=== PATIENT | female | born 1990 | race Hispanic/Latino ===

== ENCOUNTER 2017-12-04 08:12 | Inpatient (IN) | payer BC ==
[2017-12-04] MEDS ORDERED: Lidocaine 2% Inj (20ml) INFIL STA (08:49)
[2017-12-04] MEDS ORDERED: Bacitracin 500 Units/gm Oint Foilpak UD TOP STA (08:49)
--- NOTE | 2017-12-04 08:51 | C.PDOC ---
History Of Present Illness 27-year-old female, presents to the emergency department with complaints of laceration to left knee, sustained when she tripped and fell out of her car last night. Patient denies any numbness/weakness. Chief Complaint (Nursing): Lower Extremity Problem/Injury History Per: Patient History/Exam Limitations: no limitations Current Symptoms Are (Timing): Still Present Severity: Moderate Past Medical History Reviewed: Historical Data, Nursing Documentation, Vital Signs Vital Signs: Last Vital Signs Temp 98 F 12/04/17 15:30 Pulse 78 12/04/17 15:30 Resp 18 12/04/17 15:30 BP 106/73 12/04/17 15:30 Pulse Ox 97 12/04/17 18:52 Family History: States: No Known Family Hx - Social History Hx Alcohol Use: Yes Hx Substance Use: No - Immunization History Hx Tetanus Toxoid Vaccination: Yes Hx Influenza Vaccination: No Hx Pneumococcal Vaccination: No Review Of Systems Respiratory: Negative for: Shortness of Breath Gastrointestinal: Negative for: Vomiting Musculoskeletal: Negative for: Neck Pain, Back Pain Neurological: Negative for: Weakness, Numbness Physical Exam - Physical Exam Appears: Non-toxic, No Acute Distress Skin: Normal Color, Warm, Dry, No Rash Head: Atraumatic, Normacephalic Eye(s): bilateral: Normal Inspection Nose: Normal Oral Mucosa: Moist Lips: Normal Appearing Neck: Normal ROM Chest: Symmetrical Cardiovascular: Rhythm Regular, No Murmur Respiratory: Normal Breath Sounds, No Accessory Muscle Use Extremity: No Deformity, Other (Left knee: 7cm wide laceration with surrounding erythema. ) Neurological/Psych: Oriented x3, Normal Speech ED Course And Treatment - Laboratory Results Result Diagrams: 12/04/17 14:40 12/04/17 14:40 O2 Sat by Pulse Oximetry: 97 (RA) Pulse Ox Interpretation: Normal - Other Rad XR knee X-Ray: Viewed By Me, Read By Radiologist Interpretation: Accession No. : [id number]. Patient Name / ID : NARAYAN WHITLEY / [id number]. Exam Date : 12/04/2017 08:56:20 ( Approved ). Study Comment : Sex / Age : F / 27Y. Creator : Riky King. Dictator : Ynes Tomas. Supervisor [employer] : Clicking Machine Operator : Ynes Rashid. Approver2 : Report Date : 12/04/2017 10:25:09. My Comment : . PROCEDURE: Left Knee Radiographs. HISTORY: Pain. COMPARISON: None. FINDINGS: BONES : No fracture. JOINTS: Normal. No osteoarthritis. JOINT EFFUSION: None. OTHER FINDINGS: None anterior to the proximal tibial shaft are faint ossifications- phleboliths are compatible with this. This no history of foreign body. Superior to this also in the anterior soft tissues at the tibial articular surface are more hyperdense all metallic like superficial punctate densities artifact versus foreign body here are considerations. These findings are reproduced on two views. And clinical correlation is essential. IMPRESSION : No fracture noted. No lytic lesion. Indeterminate soft tissue densities - variable as referenced above. In part phleboliths are 1 consideration. The more hyperdense finding appears more metallic like clinical correlation here is needed in terms of ruling interval ruling out any potential foreign body. No history of recent trauma and no priors available for correlation. Comments: Study marked for PA review. Progress Note: Pts XR reveals gravel in wound, will irrigate the wound and discuss case w. ortho administration physician. Ortho AUGUSTUS Monzonly did Methylene Blue Test, which was negative for joint space involvement. Pts wound edges are dark and appear to be at high risk for infection. As per Dr Nixon Stein, pt will be admitted medically for further treatment. Dr Angela Galindo, accepts pt to hospitalist service Disposition - Disposition Disposition: HOSPITALIZED Disposition Time: 14:40 Condition: STABLE - Clinical Impression Clinical Impression: Knee laceration - Scribe Statement The provider has reviewed the documentation as recorded by the Scribe (Ana M Pereyra) All medical record entries made by the Scribe were at my direction and personally dictated by me. I have reviewed the chart and agree that the record accurately reflects my personal performance of the history, physical exam, medical decision making, and the department course for this patient. I have also personally directed, reviewed, and agree with the discharge instructions and disposition. Decision To Admit - Pt Status Changed To: Hospital Disposition Of: Inpatient - Admit Certification Admit to Inpatient:: After my assessment, the patient will require hospitalization for at least two midnights. This is because of the severity of symptoms shown, intensity of services needed, and/or the medical risk in this patient being treated as an outpatient. - InPatient: Physician Admission Certification: I certify that this patient requires 2 or more midnights of care for the following reason:: Patient will go to OR tomorrow - . Bed Request Type: Regular Admitting Physician: Juan Galindo Patient Diagnosis: Knee laceration
[2017-12-04] MEDS ORDERED: Bacitracin 500 Units/gm Oint Foilpak UD ONE (09:00)
[2017-12-04] MEDS ORDERED: Lidocaine 2% MPF (5 ml) Inj ONE ×3 (09:01→09:10)
[2017-12-04] MEDS ORDERED: ceFAZolin 1 gm in NS 1 GM/100 ML BAG IVPB ONE (09:01)
[2017-12-04] MEDS ORDERED: Methylene Blue 10 mg/mL(10ml) IV ONE (11:58)
--- NOTE | 2017-12-04 12:36 | RAD ---
PROCEDURE: Left Knee Radiographs. HISTORY: Pain. COMPARISON: None. FINDINGS: BONES: No fracture. JOINTS: Normal. No osteoarthritis. JOINT EFFUSION: None. OTHER FINDINGS: None anterior to the proximal tibial shaft are faint ossifications- phleboliths are compatible with this. This no history of foreign body. Superior to this also in the anterior soft tissues at the tibial articular surface are more hyperdense all metallic like superficial punctate densities artifact versus foreign body here are considerations. These findings are reproduced on two views. And clinical correlation is essential. IMPRESSION: No fracture noted. No lytic lesion. Indeterminate soft tissue densities - variable as referenced above. In part phleboliths are 1 consideration. The more hyperdense finding appears more metallic like clinical correlation here is needed in terms of ruling interval ruling out any potential foreign body. No history of recent trauma and no priors available for correlation Comments: Study marked for PA review.
[2017-12-04] MEDS ORDERED: Sodium Chloride 0.9% 1,000 ML IV STA (13:41)
[2017-12-04 14:45] LABS: BASO # 0.1 K/uL (0.0-0.2); BASO % 0.8 % (0.0-2.0); EOS % 0.1 % (0.0-4.0); HEMOGLOBIN 13.4 g/dL (11.0-16.0); LYMPH # 1.9 K/uL (1.0-4.3); LYMPH % 20.3 % (20.0-40.0); MEAN CELL VOLUME 89.9 fL (81.0-99.0); MEAN CORPUSCULAR HEMOGLOBIN 30.3 pg (27.0-31.0); MEAN CORPUSCULAR HGB CONC 33.7 g/dL (33.0-37.0); MEAN PLATELET VOLUME 12.7 fL (7.2-11.7); MONO # 0.6 K/uL (0.0-0.8); MONO % 6.4 % (0.0-10.0); NEUT # 6.9 K/uL (1.8-7.0); NEUT % 72.4 % (50.0-75.0); RBC 4.43 Mil/uL (3.80-5.20); RED CELL DISTRIBUTION WIDTH 14.7 % (11.5-14.5); WHITE BLOOD COUNT 9.5 K/uL (4.8-10.8)
[2017-12-04 14:48] LABS: HCG,QUALITATIVE URINE NEGATIVE (NEGATIVE)
[2017-12-04 14:51] LABS: SQUAMOUS EPITHIAL < 1 /hpf (0-5); URINE BILIRUBIN NEGATIVE (NEGATIVE); URINE BLOOD 1+ (NEGATIVE); URINE COLOR Yellow (YELLOW); URINE GLUCOSE (UA) NORMAL (Normal); URINE PROTEIN NEGATIVE (NEGATIVE); URINE UROBILINOGEN NORMAL mg/dL (0.2-1.0)
[2017-12-04 14:52] LABS: URINE LEUKOCYTE ESTERASE 2+ Leu/uL (Negative)
[2017-12-04 14:53] LABS: INR 1.2; URINE CLARITY SLHAZY (Clear)
[2017-12-04 15:02] LABS: ALB/GLOB RATIO 1.6 (1.0-2.1); ALT/SGPT 31 U/L (9-52); AST/SGOT 27 U/L (14-36); BLOOD UREA NITROGEN 4 mg/dL (7-17); CALCIUM 8.6 mg/dl (8.6-10.4); GFR AFRICAN-AMERICAN > 60; GFR NON-AFRICAN AMERICAN > 60
--- NOTE | 2017-12-04 15:18 | CP.PCM.HP ---
<Janette Person - Last Filed: 12/04/17 18:43> History of Present Illness - History of Present Illness History of Present Illness: CC: fell on knee HPI: Patient is a 27 year old female with no past medical history who presents after a fall at about 1am. Patient did not lose consciousness or hurt any other parts of her body. Patient was out drinking (had about 5 drinks and 2 shots), got out of a car and lost her balance stepping into a pot hole and falling onto her right knee. She did not hit anything else. Patient went home and cleaned the wound and went to sleep. When she woke up, she was having a lot of pain and realized the cut looked deeper than she had thought so she came to the ED. Patient says she can walk, but has increased pain with movement. At rest the pain is about 5/10. Patient denies any fevers, chills, headache, chest pain, abdominal pain, nausea, vomiting, constipation, or diarrhea. Allergies: NKDA Bariatric surgeon: Milad Yu ([facility]) PMHx: none Psurg: gastric sleeve in Jul 2017, lost 65lbs. 286lbs at heaviest Famhx: Dad: gout, HLD grandparents: DMII, HTN Social: 1-2 cigarettes/ 3 days for the past 4 years on and off, drinks alcohol about 2 times per week, about 4 drinks each time moved from [place] a few months ago so does not have a PMD Tetanus: December 2015 no home medications but will be starting vitamin supplements s/p gastric sleeve Code status: Full Code Health care proxy: Amanda Mix (mom) [phone] Present on Admission - Present on Admission Any Indicators Present on Admission: No History of DVT/PE: No History of Uncontrolled Diabetes: No Urinary Catheter: No Decubitus Ulcer Present: No Review of Systems - Constitutional Constitutional: absent: Chills, Fever - EENT Eyes: absent: Blurred Vision Nose/Mouth/Throat: absent: Sore Throat - Cardiovascular Cardiovascular: absent: Chest Pain, Dyspnea, Leg Edema - Respiratory Respiratory: absent: Cough, Dyspnea, Wheezing, Stridor - Gastrointestinal Gastrointestinal: absent: Abdominal Pain, Constipation, Diarrhea, Nausea, Vomiting - Genitourinary Genitourinary: absent: Change in Urinary Stream, Difficulty Urinating, Dysuria, Hematuria - Musculoskeletal Musculoskeletal: Stiffness. absent: Muscle Weakness, Numbness, Tingling Additional comments: right knee stiffness and pain - Integumentary Integumentary: Skin Pain, Wounds (right knee laceration ) - Neurological Neurological: absent: Numbness - Hematologic/Lymphatic Hematologic: absent: Easy Bleeding, Easy Bruising Past Patient History - Past Social History Smoking Status: Current Some Days Smoker - PSYCHIATRIC Hx Substance Use: No - SURGICAL HISTORY Hx Surgeries: Yes Other/Comment: "GASTRIC SLEEVE" - ANESTHESIA Hx Anesthesia: Yes Hx Anesthesia Reactions: No Hx Malignant Hyperthermia: No Meds Allergies/Adverse Reactions: Allergies Allergy/AdvReac Type Severity Reaction Status Date / Time No Known Allergies Allergy Unverified 12/04/17 08:29 Physical Exam - Constitutional Appears: Non-toxic, No Acute Distress - Head Exam Head Exam: ATRAUMATIC, NORMAL INSPECTION, NORMOCEPHALIC - Eye Exam Eye Exam: EOMI, Normal appearance - ENT Exam ENT Exam: Mucous Membranes Moist - Neck Exam Neck exam: Negative for: Tenderness - Respiratory Exam Respiratory Exam: Clear to Auscultation Bilateral, NORMAL BREATHING PATTERN. absent: Rales, Rhonchi, Wheezes, Respiratory Distress, Stridor - Cardiovascular Exam Cardiovascular Exam: REGULAR RHYTHM, RRR, +S1, +S2 - GI/Abdominal Exam GI & Abdominal Exam: Normal Bowel Sounds, Soft. absent: Distended, Tenderness - Extremities Exam Extremities exam: Negative for: normal inspection, pedal edema Additional comments: 2 in right knee laceration - Back Exam Back exam: NORMAL INSPECTION - Neurological Exam Neurological exam: Alert, Oriented x3 - Psychiatric Exam Psychiatric exam: Normal Affect, Normal Mood - Skin Skin Exam: Normal Color, Warm Results - Vital Signs Recent Vital Signs: Last Vital Signs Temp 98.3 F 12/04/17 08:26 Pulse 100 H 12/04/17 08:26 Resp 18 12/04/17 08:26 BP 101/69 12/04/17 08:26 Pulse Ox 97 12/04/17 14:41 - Labs Result Diagrams: 12/04/17 14:40 12/04/17 14:40 Labs: Laboratory Results - last 24 hr 12/04/17 12/04/17 12/04/17 14:40 14:40 14:40 WBC 9.5 RBC 4.43 Hgb 13.4 Hct 39.8 MCV 89.9 MCH 30.3 MCHC 33.7 RDW 14.7 H Plt Count 179 MPV 12.7 H Neut % (Auto) 72.4 Lymph % (Auto) 20.3 Garrett % (Auto) 6.4 Eos % (Auto) 0.1 Baso % (Auto) 0.8 Neut # (Auto) 6.9 Lymph # (Auto) 1.9 Garrett # (Auto) 0.6 Eos # (Auto) 0.0 Baso # (Auto) 0.1 PT 13.0 H INR 1.2 APTT 35 H Urine Color Yellow Urine Clarity [place] Urine pH 5.0 Ur Specific [place] 1.018 Urine Protein Negative Urine Glucose (UA) Normal Urine Ketones 1+ H Urine Blood 1+ H Urine Nitrate Negative Urine Bilirubin Negative Urine Urobilinogen Normal Ur Leukocyte Esterase 2+ H Urine WBC (Auto) 10 H Urine RBC (Auto) 4 H Ur Squamous Epith Cells < 1 Urine HCG, Qual Negative Assessment & Plan - Assessment and Plan (Free Text) Assessment: Knee Laceration xray: none anterior to the proximal tibial shaft are faint ossifications- phleboliths are compatible with this. superior to this also in the anterior soft tissues at the tibial articular surface are more hyperdense, metallic like superificial punctate densities artifact versus foreign body here are considerations. Ortho, Dr. Nixon Stein consulted, help appreciated patient to go to OR tomorrow antibiotics and pain management as per ortho NPO after midnight cxray: no focal infiltrate or effusion EKG: NSR f/u MRI of LE Prophylaxis no GI or DVT prophylaxis indicated incentive spirometer post OR dispo: patient medically stable for OR <Juan Galindo - Last Filed: 12/04/17 22:09> Results - Vital Signs Recent Vital Signs: Last Vital Signs Temp 98 F 12/04/17 15:30 Pulse 78 12/04/17 15:30 Resp 18 12/04/17 15:30 BP 106/73 12/04/17 15:30 Pulse Ox 97 12/04/17 19:00 - Labs Result Diagrams: 12/04/17 14:40 12/04/17 14:40 Labs: Laboratory Results - last 24 hr 12/04/17 12/04/17 12/04/17 14:40 14:40 14:40 WBC 9.5 RBC 4.43 Hgb 13.4 Hct 39.8 MCV 89.9 MCH 30.3 MCHC 33.7 RDW 14.7 H Plt Count 179 MPV 12.7 H Neut % (Auto) 72.4 Lymph % (Auto) 20.3 [place] % (Auto) 6.4 Eos % (Auto) 0.1 Baso % (Auto) 0.8 Neut # (Auto) 6.9 Lymph # (Auto) 1.9 [place] # (Auto) 0.6 Eos # (Auto) 0.0 Baso # (Auto) 0.1 PT 13.0 H INR 1.2 APTT 35 H Sodium Potassium Chloride Carbon Dioxide Anion Gap BUN Creatinine Est GFR ( Amer) Est GFR (Non-Af Amer) Random Glucose Calcium Total Bilirubin AST ALT Alkaline Phosphatase Total Protein Albumin Globulin Albumin/Globulin Ratio Urine Color Yellow Urine Clarity [place] Urine pH 5.0 Ur Specific [place] 1.018 Urine Protein Negative Urine Glucose (UA) Normal Urine Ketones 1+ H Urine Blood 1+ H Urine Nitrate Negative Urine Bilirubin Negative Urine Urobilinogen Normal Ur Leukocyte Esterase 2+ H Urine WBC (Auto) 10 H Urine RBC (Auto) 4 H Ur Squamous Epith Cells < 1 Urine HCG, Qual Negative Urine Opiates Screen Urine Methadone Screen Ur Barbiturates Screen Ur Phencyclidine Scrn Ur Amphetamines Screen U Benzodiazepines Scrn U Oth Cocaine Metabols U Cannabinoids Screen 12/04/17 12/04/17 14:40 15:15 WBC RBC Hgb Hct MCV MCH MCHC RDW Plt Count MPV Neut % (Auto) Lymph % (Auto) [place] % (Auto) Eos % (Auto) Baso % (Auto) Neut # (Auto) Lymph # (Auto) [place] # (Auto) Eos # (Auto) Baso # (Auto) PT INR APTT Sodium 144 Potassium 4.2 Chloride 108 H Carbon Dioxide 25 Anion Gap 15 BUN 4 L Creatinine 0.6 L Est GFR ( Amer) > 60 Est GFR (Non-Af Amer) > 60 Random Glucose 89 Calcium 8.6 Total Bilirubin 0.4 AST 27 ALT 31 Alkaline Phosphatase 82 Total Protein 6.6 Albumin 4.0 Globulin 2.5 Albumin/Globulin Ratio 1.6 Urine Color Urine Clarity Urine pH Ur Specific [place] Urine Protein Urine Glucose (UA) Urine Ketones Urine Blood Urine Nitrate Urine Bilirubin Urine Urobilinogen Ur Leukocyte Esterase Urine WBC (Auto) Urine RBC (Auto) Ur Squamous Epith Cells Urine HCG, Qual Urine Opiates Screen Negative Urine Methadone Screen Negative Ur Barbiturates Screen Negative Ur Phencyclidine Scrn Negative Ur Amphetamines Screen Negative U Benzodiazepines Scrn Negative U Oth Cocaine Metabols Negative U Cannabinoids Screen Negative Attending/Attestation - Attestation I have personally seen and examined this patient.: Yes I have fully participated in the care of the patient.: Yes I have reviewed all pertinent clinical information: Yes
--- NOTE | 2017-12-04 15:42 | RAD ---
Chest x-ray two views History: Preoperative evaluation. Comparison: None available. Findings: No focal infiltrate or effusion. Heart size within normal limits. Impression: No focal infiltrate or effusion.
--- NOTE | 2017-12-04 15:50 | CP.PCM.CON ---
<Arturo Higgins - Last Filed: 12/04/17 15:48> History of Present Illness - History of Present Illness History of Present Illness: Orthopedic consultation Dr. Perez 27F complains of right knee pain after fall onto knee at approx 1am this morning. She came to the ER at 8am for evaluation. She says she rolled her ankle also, but now that doesn't hurt, and that she rolls her ankles a lot and the pain resolves quickly. She denies any other injury. She is able to walk but complains of pain. No active bleeding. NKDA PMH: denies PSH: gastric sleeve 07/2017 Review of Systems - Review of Systems All systems: reviewed and no additional remarkable complaints except - Genitourinary Additional comments: no dysuria - Musculoskeletal Musculoskeletal: As Per HPI - Neurological Additional comments: no numbness/tingling - Hematologic/Lymphatic Hematologic: absent: As Per HPI, Easy Bleeding, Easy Bruising, Lymphadenopathy, Other Past Patient History - Past Medical History & Family History Past Medical History?: Yes Past Family History: Reviewed and not pertinent - Past Social History Smoking Status: Current Some Days Smoker - PSYCHIATRIC Hx Substance Use: No - SURGICAL HISTORY Hx Surgeries: Yes Other/Comment: "GASTRIC SLEEVE" - ANESTHESIA Hx Anesthesia: Yes Hx Anesthesia Reactions: No Hx Malignant Hyperthermia: No Meds Allergies/Adverse Reactions: Allergies Allergy/AdvReac Type Severity Reaction Status Date / Time No Known Allergies Allergy Unverified 12/04/17 08:29 - Medications Medications: Current Medications Sodium Chloride (Sodium Chloride 0.9%) 1,000 mls @ 100 mls/hr IV .Q10H STA Stop: 12/04/17 23:40 Last Admin: 12/04/17 15:04 Dose: 100 mls/hr Cefazolin Sodium/Dextrose (Ancef Iv 2 Gm Duplex) 2 gm in 50 mls @ 100 mls/hr IVPB Q8H EMERALD PRN Reason: Protocol Tramadol HCl (Ultram) 50 mg PO TID PRN PRN Reason: Pain, moderate (4-7) Physical Exam - Constitutional Appears: Well, No Acute Distress - Head Exam Head Exam: ATRAUMATIC - Neck Exam Neck exam: Positive for: Full Rom - Respiratory Exam Respiratory Exam: NORMAL BREATHING PATTERN - Cardiovascular Exam Additional comments: +DP/PT pulses - Expanded Lower Extremities Exam Right Knee exam: full ROM (able to actively flex/ext knee, +SLR), laceration (6cm x 1cm deep laceration to fascia, no obvious arthrotomy), swelling (no joint effusion) Ankle exam: FULL ROM Neuro vacular tendon exam: no vascular compromise Gait: antalgic - Neurological Exam Neurological exam: Alert, Oriented x3 - Psychiatric Exam Psychiatric exam: Normal Affect, Normal Mood - Skin Skin Exam: Warm (no active bleeding) Results - Vital Signs Recent Vital Signs: Last Vital Signs Temp 98 F 12/04/17 15:30 Pulse 78 12/04/17 15:30 Resp 18 12/04/17 15:30 BP 106/73 12/04/17 15:30 Pulse Ox 98 12/04/17 15:30 - Labs Result Diagrams: 12/04/17 14:40 12/04/17 14:40 Labs: Laboratory Results - last 24 hr 12/04/17 12/04/17 12/04/17 14:40 14:40 14:40 WBC 9.5 RBC 4.43 Hgb 13.4 Hct 39.8 MCV 89.9 MCH 30.3 MCHC 33.7 RDW 14.7 H Plt Count 179 MPV 12.7 H Neut % (Auto) 72.4 Lymph % (Auto) 20.3 [place] % (Auto) 6.4 Eos % (Auto) 0.1 Baso % (Auto) 0.8 Neut # (Auto) 6.9 Lymph # (Auto) 1.9 [place] # (Auto) 0.6 Eos # (Auto) 0.0 Baso # (Auto) 0.1 PT 13.0 H INR 1.2 APTT 35 H Sodium Potassium Chloride Carbon Dioxide Anion Gap BUN Creatinine Est GFR ( Amer) Est GFR (Non-Af Amer) Random Glucose Calcium Total Bilirubin AST ALT Alkaline Phosphatase Total Protein Albumin Globulin Albumin/Globulin Ratio Urine Color Yellow Urine Clarity [place] Urine pH 5.0 Ur Specific [place] 1.018 Urine Protein Negative Urine Glucose (UA) Normal Urine Ketones 1+ H Urine Blood 1+ H Urine Nitrate Negative Urine Bilirubin Negative Urine Urobilinogen Normal Ur Leukocyte Esterase 2+ H Urine WBC (Auto) 10 H Urine RBC (Auto) 4 H Ur Squamous Epith Cells < 1 Urine HCG, Qual Negative 12/04/17 14:40 WBC RBC Hgb Hct MCV MCH MCHC RDW Plt Count MPV Neut % (Auto) Lymph % (Auto) [place] % (Auto) Eos % (Auto) Baso % (Auto) Neut # (Auto) Lymph # (Auto) [place] # (Auto) Eos # (Auto) Baso # (Auto) PT INR APTT Sodium 144 Potassium 4.2 Chloride 108 H Carbon Dioxide 25 Anion Gap 15 BUN 4 L Creatinine 0.6 L Est GFR ( Amer) > 60 Est GFR (Non-Af Amer) > 60 Random Glucose 89 Calcium 8.6 Total Bilirubin 0.4 AST 27 ALT 31 Alkaline Phosphatase 82 Total Protein 6.6 Albumin 4.0 Globulin 2.5 Albumin/Globulin Ratio 1.6 Urine Color Urine Clarity Urine pH Ur Specific [place] Urine Protein Urine Glucose (UA) Urine Ketones Urine Blood Urine Nitrate Urine Bilirubin Urine Urobilinogen Ur Leukocyte Esterase Urine WBC (Auto) Urine RBC (Auto) Ur Squamous Epith Cells Urine HCG, Qual - Impressions Impression: Imaging reviewed after copious irrigation by ER, the radioopaque FB are no longer visible atient Name / ID : NARAYAN WHITLEY / [id number] Exam Date : 12/04/2017 08:56:20 ( Approved ) Study Comment : Sex / Age : F / 27Y Creator : Riky King Dictator : Ynes Rashid Arm Rest Builder : Vp Design : Ynes Rashid Approver2 : Report Date : 12/04/2017 10:25:09 My Comment : PROCEDURE: Left Knee Radiographs. HISTORY: Pain. COMPARISON: None. FINDINGS: BONES: No fracture. JOINTS: Normal. No osteoarthritis. JOINT EFFUSION: None. OTHER FINDINGS: None anterior to the proximal tibial shaft are faint ossifications- phleboliths are compatible with this. This no history of foreign body. Superior to this also in the anterior soft tissues at the tibial articular surface are more hyperdense all metallic like superficial punctate densities artifact versus foreign body here are considerations. These findings are reproduced on two views. And clinical correlation is essential. IMPRESSION: No fracture noted. No lytic lesion. Indeterminate soft tissue densities - variable as referenced above. In part phleboliths are 1 consideration. The more hyperdense finding appears more metallic like clinical correlation here is needed in terms of ruling interval ruling out any potential foreign body. No history of recent trauma and no priors available for correlation Comments: Study marked for PA review. Assessment & Plan - Assessment and Plan (Free Text) Assessment: Right knee laceration copiously irrigated by ED, called for ortho consult as still appears contaminated wound and deep to fascia 40cc sterile saline injected intraarticularly from lateral approach, noted distension of joint, no saline from laceration to indicate joint communication extensor mechanism intact radioopaque FB do not appear on repeat knee XR due to continued obvious contamination of wound, patient indicated for I&D and wound closure in OR per Dr. Perez NPO p MN pre op labs smoking cessation advised ancef saline wet to dry dressing applied for OR 12/04 u/a abnormal, ucx ordered repeat labs in am tetanus up to date pain medication elevation <Heather Albarran S - Last Filed: 12/29/17 00:10> Results - Vital Signs Recent Vital Signs: Last Vital Signs Temp 98.2 F 12/06/17 00:17 Pulse 72 12/06/17 00:17 Resp 20 12/06/17 00:17 BP 100/68 12/06/17 00:17 Pulse Ox 99 12/06/17 00:17 - Labs Result Diagrams: 12/06/17 07:46 12/06/17 07:46 Assessment & Plan - Assessment and Plan (Free Text) Assessment: Pt seen and examined. above history confirmed with the patient personally. She admits to EtOH during the injury and is unsure of the details of the mechanism of injury, she only knows definitely that she fell from standing after tripping landing on her right knee with resulting anterior knee pain and pain with extension of the knee as well as a large deep laceration below the level of the patella. She states that she only drinks occasionally and denies being alcoholic or drinking daily. R knee: deep laceration at level of patellar tendon just inferior to the patella.laceration is perpendicular to the long axis of the leg and measures approximately 5 cm across. The wound is deep down to the level of the patellar tendon with gross contamination still present despite copious irrigation by ER staff and orthopedic PA. There is visible gravel and other debris from the road present within the wound. diagnosis = right knee #1 large contaminated deep laceration #2 possible partial patellar tendon tear Low suspicion for intra-articular extension/open knee joint. Plan: Right knee: -Clinically large deep contaminated wound at level of the patellar tendon down to the level of the patellar tendon with most likely partial tearing of the tendon. Visible gross contamination with gravel and other parts from the road within the wound despite best efforts by ER staff and copious irrigation bedside. -Indicated for formal irrigation and debridement and removal of foreign material , primary closure of wound, evaluation of patellar tendon and possible primary patellar tendon repair if indicated and all related indicated procedures. -Laced on the OR schedule for first thing in the morning after adequate time npo -npo -Continue IV antibiotics -Update tetanus -The risks, benefits, alternatives to surgery discussed at length with the patient, she accepts the risks and wished to proceed with surgery. -pain control -Preop labs, chest x-ray, EKG, medical evaluation -Please contact me directly with any questions, concerns, updates at [phone] Thank you for allowing me to participate in the care of your patient. Heather Perez MD orthoepdic Surgery
[2017-12-04 15:51] LABS: BARBITURATES, UR NEGATIVE (NEGATIVE); BENZODIAZEPINES, UR NEGATIVE (NEGATIVE); OPIATES, UR NEGATIVE (NEGATIVE); PHENCYCLIDINE, UR NEGATIVE (NEGATIVE)
--- NOTE | 2017-12-04 16:06 | RAD ---
PROCEDURE: Right Knee Radiographs. HISTORY: right knee laceration COMPARISON: None. FINDINGS: BONES: Normal. No fracture. JOINTS: Mild osteoarthritis. JOINT EFFUSION: None. OTHER FINDINGS: Anterior knee soft tissue lucencies compatible with soft tissue laceration. No gross radiopaque foreign body. Lying bandage inferred. Cortical interruption. IMPRESSION: No fracture or bony destruction seen. Anterior soft tissue laceration.
[2017-12-04] MEDS: ceFAZolin 2 GM in Sodium Chloride 0.9% 100 ML IVPB SCH (16:46)
[2017-12-04] MEDS ORDERED: Gadodiamide 287 mg/ml 20 ml IV ONE (18:25)
--- NOTE | 2017-12-04 22:15 | CP.PCM.PCO ---
Physician Communication Note - Physician Communication Note Physician Communication Note: Please see above
[2017-12-05] MEDS: ceFAZolin 2 GM in Sodium Chloride 0.9% 100 ML IVPB SCH ×4 (00:02→23:41)
[2017-12-05 04:56] LABS: MEAN CELL VOLUME 90.2 fL (81.0-99.0); MEAN CORPUSCULAR HGB CONC 33.2 g/dL (33.0-37.0); MEAN PLATELET VOLUME 12.4 fL (7.2-11.7); RBC 4.34 Mil/uL (3.80-5.20); RED CELL DISTRIBUTION WIDTH 14.4 % (11.5-14.5); WHITE BLOOD COUNT 8.5 K/uL (4.8-10.8)
[2017-12-05 05:02] LABS: INR 1.1; PROTHROMBIN TIME 12.5 SECONDS (9.7-12.2)
[2017-12-05 05:11] LABS: BLOOD UREA NITROGEN 6 mg/dL (7-17); CALCIUM 8.9 mg/dl (8.6-10.4); GFR AFRICAN-AMERICAN > 60; GFR NON-AFRICAN AMERICAN > 60
[2017-12-05] MEDS ORDERED: Bacitracin 50,000 UNIT in Sodium Chloride 0.9% Irrig 1,000 ML IR SCH (07:15)
[2017-12-05] MEDS ORDERED: Propofol 10 mg/ml Inj (20 ML) ONE (07:54)
[2017-12-05] MEDS ORDERED: Midazolam 2 MG/2 ML VIAL ONE (07:56)
[2017-12-05] MEDS ORDERED: HYDROmorphone 0.5 mg/0.5 ml ISec IVP PRN (09:04)
[2017-12-05] MEDS ORDERED: Lactated Ringer's 1,000 ML IV ONE (09:30)
--- NOTE | 2017-12-05 10:44 | MRI ---
MRI right knee History: Injury. Laceration. Comparison: X-ray dated 12/04/2017 Technique: Multi-echo multiplanar sequences were performed through the right knee without and with the use of intravenous contrast. Findings: Anterior cruciate ligament is preserved. Posterior cruciate ligament is preserved. Linear increased signal seen within the posterior horn of the medial meniscus suggestive for intrasubstance degeneration without evidence gross tear. Linear increased signal seen within the anterior horn of the lateral meniscus suggestive for intrasubstance degeneration without evidence of gross tear. Medial collateral ligament is preserved. Lateral collateral ligament complex structures are preserved. Quadriceps tendon is preserved. 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 Adjacent cartilage thinning and loss overlying the anterior aspect of the lateral femoral condyle. No significant suprapatellar joint effusion. Prominent soft tissue laceration within the prepatellar soft tissues anterior to the mid patellar tendon. Soft tissue gas noted. The laceration extends and abuts to the anterior and lateral aspect of the patellar tendon. Prominent amount of reticulation and edema seen within the soft tissues at that level. Some questionable minimal reactive edema seen within the infrapatellar fat on series 6 images 20 through 22 which may be related to motion artifact. Clinical correlation. Impression: 1. Prominent soft tissue laceration within the prepatellar soft tissues anterior to the mid patellar tendon. Soft tissue gas noted. Blooming artifact noted at that level. The laceration extends and abuts to the anterior and lateral aspect of the patellar tendon. Prominent amount of reticulation and edema seen within the soft tissues at that level. Some questionable minimal reactive edema seen within the infrapatellar fat on series 6 images 20 through 22 which may be related to motion artifact. Clinical correlation. 2. 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 Adjacent cartilage thinning and loss overlying the anterior aspect of the lateral femoral condyle. 3. Linear increased signal seen within the posterior horn of the medial meniscus suggestive for intrasubstance degeneration without evidence gross tear. 4. Linear increased signal seen within the anterior horn of the lateral meniscus suggestive for intrasubstance degeneration without evidence of gross tear. These findings were preliminarily reported at 7:08 p.m. on 12/04/[address] Xavier Calabrese from [facility].
--- NOTE | 2017-12-05 14:36 | CP.PCM.PN ---
Subjective - Date & Time of Evaluation Date of Evaluation: 12/05/17 Time of Evaluation: 14:34 - Subjective Subjective: PGY-[address] Cervantes. No acute events noted post OR procedure to I&D knee laceration. Patient right leg wrapped with brace on. She inquired about ambulating to bathroom to use restroom but I advised better to use bedpan, she said okay. Denied sob, cp, fevers, n/v/d/c. Objective - Vital Signs/Intake and Output Vital Signs (last 24 hours): Temp Pulse Resp BP Pulse Ox 98 F 61 14 102/46 L 100 12/05/17 09:45 12/05/17 09:45 12/05/17 09:45 12/05/17 09:45 12/05/17 09:45 Intake and Output: 12/05/17 12/05/17 06:59 18:59 Intake Total 1500 1100 Balance 1500 1100 - Medications Medications: Current Medications Cefazolin Sodium 2 gm/ Sodium (Chloride) 100 mls @ 200 mls/hr IVPB Q8H EMERALD PRN Reason: Protocol Last Admin: 12/05/17 08:00 Dose: 100 mls Pneumococcal Polyvalent Vaccine (Pneumovax 23 Vaccine) 0.5 ml IM .ONCE ONE Stop: 12/07/17 10:01 Tramadol HCl (Ultram) 50 mg PO TID PRN PRN Reason: Pain, moderate (4-7) Last Admin: 12/05/17 12:13 Dose: 50 mg - Labs Labs: 12/05/17 04:51 12/05/17 04:51 PT 12.5 SECONDS (9.7-12.2) H 12/05/17 04:51 INR 1.1 12/05/17 04:51 APTT 35 SECONDS (21-34) H 12/05/17 04:51 - Additional Findings Additional findings: - Constitutional Appears: Non-toxic, No Acute Distress - Head Exam Head Exam: ATRAUMATIC, NORMAL INSPECTION, NORMOCEPHALIC - Eye Exam Eye Exam: EOMI, Normal appearance - ENT Exam ENT Exam: Mucous Membranes Moist - Neck Exam Neck exam: Negative for: Tenderness - Respiratory Exam Respiratory Exam: Clear to Auscultation Bilateral, NORMAL BREATHING PATTERN. absent: Rales, Rhonchi, Wheezes, Respiratory Distress, Stridor - Cardiovascular Exam Cardiovascular Exam: REGULAR RHYTHM, RRR, +S1, +S2 - GI/Abdominal Exam GI & Abdominal Exam: Normal Bowel Sounds, Soft. absent: Distended, Tenderness - Extremities Exam Extremities exam: Negative for: normal inspection, pedal edema Additional comments: right knee wrapped and secured in brace - Back Exam Back exam: NORMAL INSPECTION - Neurological Exam Neurological exam: Alert, Oriented x3 - Psychiatric Exam Psychiatric exam: Normal Affect, Normal Mood - Skin Skin Exam: Normal Color, Warm Assessment and Plan - Assessment and Plan (Free Text) Assessment: Knee Laceration In need of I&D Ortho, Dr. Nixon Stein consulted, help appreciated * s/p I&D with Dr Nixon Stein on 12/05 Ancef 2g IVPB Q8H Ultram 50mg PO TID PRN EKG: NSR Imaging: MRI Right Knee: * 1. Prominent soft tissue laceration within the prepatellar soft tissues anterior to the mid patellar tendon. Soft tissue gas noted. Blooming artifact noted at that level. The laceration extends and abuts to the anterior and lateral aspect of the patellar tendon. Prominent amount of reticulation and edema seen within the soft tissues at that level. Some questionable minimal reactive edema seen within the infrapatellar fat on series 6 images 20 through 22 which may be related to motion artifact. Clinical correlation. * 2. 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 Adjacent cartilage thinning and loss overlying the anterior aspect of the lateral femoral condyle. * 3. Linear increased signal seen within the posterior horn of the medial meniscus suggestive for intrasubstance degeneration without evidence gross tear. * 4. Linear increased signal seen within the anterior horn of the lateral meniscus suggestive for intrasubstance degeneration without evidence of gross tear. XRAY Right Knee: * No fracture or bony destruction seen. Anterior soft tissue laceration. XRAY Right Knee: * none anterior to the proximal tibial shaft are faint ossifications- phleboliths are compatible with this. superior to this also in the anterior soft tissues at the tibial articular surface are more hyperdense, metallic like superificial punctate densities artifact versus foreign body here are considerations. CXRAY: no focal infiltrate or effusion Prophylaxis no GI or DVT prophylaxis indicated incentive spirometer post OR dispo: D/C in AM with percocet and follow-up in Dr Nixon Stein office at 9:30AM on 12/08/17.
[2017-12-05 16:50] VITALS: RESP 20
--- NOTE | 2017-12-05 17:16 | CARD ---
APPROVED REPORT EKG Measurement Heart [id number] NH [id number] <Conclusion> Normal sinus rhythm Normal ECG
[2017-12-06 00:22] VITALS: BP 100/68; PULSE 72; TEMP 98.2; O2SAT 99
[2017-12-06 08:18] LABS: HEMOGLOBIN 12.2 g/dL (11.0-16.0); MEAN CELL VOLUME 89.5 fL (81.0-99.0); MEAN CORPUSCULAR HEMOGLOBIN 29.6 pg (27.0-31.0); MEAN PLATELET VOLUME 12.8 fL (7.2-11.7); RBC 4.12 Mil/uL (3.80-5.20); RED CELL DISTRIBUTION WIDTH 14.3 % (11.5-14.5); WHITE BLOOD COUNT 7.6 K/uL (4.8-10.8)
[2017-12-06 08:51] LABS: BLOOD UREA NITROGEN 7 mg/dL (7-17); CALCIUM 8.7 mg/dl (8.6-10.4); GFR AFRICAN-AMERICAN > 60; GFR NON-AFRICAN AMERICAN > 60
--- NOTE | 2017-12-06 12:23 | PCM.SURG1 ---
Surgeon's Initial Post Op Note - Surgeon's Notes Surgeon: Heather Perez MD Site Leader: Ishaan Bonilla PA-C Type of Anesthesia: General Endo Pre-Operative Diagnosis: Right knee deep anterior laceration Operative Findings: Right knee #1 deep anterior laceration with gross contaimination. #2 patellar tendon partial small tear. #3 multiple foreign bodies/ gravel & dirt in caontaiminated wound Post-Operative Diagnosis: Right knee #1 deep anterior laceration with gross contaimination. #2 patellar tendon partial small tear. #3 multiple foreign bodies/ gravel & dirt in caontaiminated wound Operation Performed: Right knee: #1 formal I&D large anterior laceration/ contaimenated wound. #2 removal of foriegn body (gravel and dirt). #3 fluid load test of knee joint. #4 primary repair patellar tendon partial tear. #5 primary closure of anterior laceration/ wound. #6 acquisition of cultures and biopsy of tissue Specimen/Specimens Removed: specimen= foriegn bodies to path. Cx x3/ AFB & fungus to micro lab. tourniquet time= 0min. complications= none Estimated Blood Loss: EBL {In ML}: 10 Blood Products Given: N/A Drains Used: No Drains Post-Op Condition: Good Date of Surgery/Procedure: 12/05/17 Time of Surgery/Procedure: 07:00
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
[2017-12-07] MEDS ORDERED: Pneumococcal 23-Valent Vaccine IM ONE (10:00)
--- NOTE | 2017-12-29 09:48 | OP ---
PROCEDURE DATE: 12/05/2017 PREOPERATIVE DIAGNOSES: Right knee: 1. Large deep anterior laceration with gross contamination and foreign material. 2. Possible patellar tendon partial tear. POSTOPERATIVE DIAGNOSES: Right knee: 1. Large deep anterior laceration with gross contamination. 2. Patellar tendon partial tear. 3. Multiple foreign bodies/gravel and dirt in contaminated wound. PROCEDURES: Right knee: 1. Formal irrigation and debridement large anterior laceration/contaminated wound. 2. Removal of foreign body (gravel and dirt). 3. Fluid load test of knee joint. 4. Primary repair patellar tendon partial tear. 5. Primary closure of anterior laceration/wounds. 6. Aquisition of cultures and biopsy of tissue at deep laceration. SURGEON: Heather Perez MD COUNSELING DIRECTOR: Ishaan Bonilla PA-C JUSTIFICATION FOR COUNSELING DIRECTOR: Ishaan Bonilla is a certified physician medication assistant whose skilled surgical services was an absolute necessity for successful completion of the procedure as he provided skilled surgical assistance with positioning of the patient, positioning of extremity, management of surgical dolan, retraction of neurovascular structures, aquisition of cultures and biopsy, irrigation and debridement and removal of foreign bodies, evaluation of patella tendon and primary patellar tendon repair, primary closure of wound. Ishaan Bonilla was present for the entire case and was an absolute necessity for successful completion of the procedure. ANESTHESIA: General endotracheal anesthesia with a postop regional nerve block placed by anesthesia staff in PACU. ESTIMATED BLOOD LOSS: 10 mL. TOURNIQUET TIME: 0 minutes. COMPLICATIONS: None. SPECIMEN: Foreign bodies and tissues sent to Pathology/Biopsy, cultures x3, AFB x1, fungus x1. Specimen sent to microbiology lab. DISPOSITION: The patient was extubated and transferred to PACU in stable condition and tolerated the procedure well. IMPLANTS: A #2 FiberWire suture placed for patellar tendon primary repair. INDICATIONS FOR SURGERY: The patient is a 27-year-old female with no significant past medical history, who presented to the emergency room at [facility] on 12/04/2017, with right knee pain and open wound experienced early in the morning while she was out. She admits to EtOH and being under the influence at the time of injury. She does not recall the details of the mechanism, but states that when she fell she landed on her right knee anterior aspect resulting in immediate 10/10 pain localized to the anterior aspect of the knee and pain with attempted extension of the knee and ambulation. She noticed a large open wound. She went home but early in the morning due to the pain presents to the ER at [facility] for treatment and evaluation. After evaluation by ER staff and review of imaging, it was confirmed that there was gross contamination of this large wound with pieces of gravel and dirt within the wound to the degree that they even showed up on the x-rays taken in the ER. ER staff attempted copious irrigation of the wound and did remove a significant amount of the gross contamination tissue, but despite their best efforts, there was still significant contamination of the wound. Orthopedic consultation was placed and the orthopedic PA initially saw the patient in the ER under my supervision. Evaluation in the ER confirmed that there was gross contamination of the wound and possible communication with the knee joint. The orthopedic PA performed a fluid load test confirming that there was low likelihood of an open knee joint with a negative test. The patient was then admitted to the medical service under the hospitalist and IV antibiotics were started as well as update of tetanus. Wet-to-dry dressing was placed and the patient was admitted and placed in the knee immobilizer. She was indicated for right knee large deep laceration with contamination, formal irrigation and debridement, as well as removal of foreign material in the OR, evaluation of the patellar tendon and possible primary repair of a partial tear of the patellar tendon, repeat fluid load test in the OR and if positive we would proceed with arthroscopic I and D of the knee as well, acquisition of biopsy and cultures. The risks, benefits, and alternatives to the procedure were discussed at length with the patient, as I evaluated her in the preop area and went over the details of the surgery as well personally. The orthopedic PA did go through everything with her as well. The risks, benefits, and alternatives to the procedure were discussed at length with the patient with the risks include, but not limited to infection, superinfection, retained micro fragments of the foreign material/gravel/dirt, despite best efforts need for repeat I and D, failure of patellar tendon repair, development of chronic pain and disability, inability to return to preinjury level of activity and function, development of blood clots including DVT and PE, need for further surgery, anesthesia reactions including . After answering all of her questions, she stated that she understood the risks and wished to proceed with surgery. She underwent preop blood work and evaluation by primary service and she was placed on the schedule in the cyanide pot tender at [facility] on 12/05/2017 in the OR. This will provide adequate time for her n.p.o. status to be acceptable and safe for surgery. PROCEDURE IN DETAIL: The patient was identified in the preoperative holding area and the right knee was marked for surgery. Once again, as described above the risks, benefits, and alternatives to the procedure were discussed at length with the patient personally and she accepted all the risks and wished to proceed with surgery and informed consent was obtained. After brief discussion with anesthesia staff, the patient was taken to the OR and placed on the well-padded operating room table with all bony prominences and superficial neurovascular structures well padded. Tourniquet was placed high on the right thigh, but never inflated. She underwent placement under general anesthesia without difficulty or complication. Right lower extremity was prepped and draped in standard sterile fashion. Final time-out was done with the surgeon, anesthesia staff, OR staff, all in agreement with the patient, procedure being done, and extremity being operated on. Examination under anesthesia: Large 4 to 5 cm deep laceration perpendicular to the long access of the leg down to the level of the patellar tendon with subcutaneous fat present at the margins of the wound with gross contamination and visible pieces of gravel and dirt within the wound. Patellar tendon exhibited a partial tear approximately 20% at the medial border with the remaining fibers appearing to be intact. Knee had full range of motion with no evidence of instability with negative anterior drawer, negative posterior drawer, negative Tristan, negative reverse Tristan, negative pivot shift, negative reverse pivot shift, negative opening to medial and lateral joint line at 0 to 30 degrees of varus and valgus stress, patella with normal tracking and no crepitance and no evidence of patellar instability. CONTINUATION OF PROCEDURE: We began with copious irrigation of the wound with approximately 3000 mL of normal saline. The wound was expanded medially and laterally to allow for better access to the margins of the contaminated tissue. The pieces of gravel and dirt that were visible were picked up and removed from the surrounding soft tissue. The contamination was significant and extended to the medial and lateral aspects of the wound as well as underneath the soft tissue beneath the subcutaneous layer extending distally and proximally above the patella itself and down into the anterior compartment of the leg. After blunt dissection and careful evaluation of the tissue and extensive debridement and removal of multiple foreign body pieces of gravel and dirt was carried out successfully. Copious irrigation was then carried out again this time focusing on the tissue planes that were elevated by the injury into the anterior compartment and above the level of the patella proximally. Once it was felt that all of the foreign material was removed, the foreign material that was obtained was sent to Pathology. We then obtained cultures from deeper aspects of the wound with three regular bacteria cultures that Gram stain sent, one specimen for AFB, one specimen for fungus. All these specimens were sent to Microbiology. A fluid load test of the knee was then carried out with 120 mL of normal saline injected intraarticular with visible expansion of the capsule and effusion of the knee joint. There was no visible fluid egressing through the wound and therefore this was a negative fluid load test and it was confirmed that there was very low likelihood of an open knee joint. At that point in time, we proceeded with primary repair of the patellar tendon partial tear. An end-to-end repair with whipstitch fashion was carried out with the use of #2 FiberWire. The tear pattern was longitudinal with some of the ends of the fiber torn mid substance from direct contact with the impact and laceration. With the whipstitch formation, these ends were brought together and tied down successfully with ease. As stated before, there was only 20% of the patellar tendon torn at the medial aspect of the patellar tendon and repaired successfully. The wound was copiously irrigated again and care was taken to ensure that there was clean edges of the wound only and that all debris and foreign material was removed. A #1 Vicryl suture and 2-0 Vicryl sutures were used to reapproximate deep and subcutaneous tissue. Vishnu were used for skin. Sterile dressings were applied followed by a layer of sterile cast starting from the toes up to the superior thigh followed by a layer of compressive Jeramy wrap from the toes up to the superior thigh. The knee was then placed and fitted into a postop hinge knee brace provided by my office. Once the knee brace was in positioned and locked at 0 degrees extension, the patient was then extubated and transferred to PACU in stable condition and tolerated the procedure well. JUSTIFICATION FOR BILLING AND CODIN. A primary repair of the partial patellar tendon tear was carried out successfully and therefore coded and billed. 2. Foreign body and debris were removed from the wound and therefore was coded and billed. 3. Irrigation and debridement of the open laceration was carried out successfully and therefore coded and billed. 4. A fluid load test was carried out successfully as an injection in the knee joint and therefore coded and billed. 5. Primary closure of the wound was carried out successfully and therefore coded and billed. 6. A postop hinge knee brace provided by my office was fitted and placed on the patient at the end of the procedure to provide for immobilization and extension for patellar tendon healing with ambulation to allow weightbearing as tolerated ambulation without restrictions as well as to unlock the brace and allow for obtaining range of motion slowly and working with physical therapy. DISPOSITION: The patient was extubated and transferred to PACU in stable condition and tolerated the procedure well. She will continue on the medical service with dosing of IV antibiotics for at least 24 hours. At that point in time, she will be switched to antibiotics my mouth and reevaluated by the orthopedic service and if the wound shows no evidence of reinfection or the need for a repeat I and D, then she will be discharged home with antibiotics by mouth for at least two weeks. She will follow up in my office at [facility] within one week and we will have her postoperative appointment setup. She will receive adequate pain control. She will be started on DVT prophylaxis in the form of Lovenox 40 mg once daily injection starting postoperative day #1. Heather Perez MD
== END 2017-12-06 12:15 | disposition home or self-care (01) | DRG 909 ==
LOC: C.ER 08:12 → C.9E 14:12 → C.3T 14:54
PROVIDERS: ADMIT Family Medicine; ATTEND Family Medicine
PROC: 0HCKXZZ Extirpation of Matter from Right Lower Leg Skin, External Approach (ICD-10-PCS; principal; 2017-12-04)
PROC: 0LQQ0ZZ Repair Right Knee Tendon, Open Approach (ICD-10-PCS; 2017-12-04)
PROC: 0HQKXZZ Repair Right Lower Leg Skin, External Approach (ICD-10-PCS; 2017-12-04)
PROC: 0HBKXZZ Excision of Right Lower Leg Skin, External Approach (ICD-10-PCS; 2017-12-05)
DX: S81.021A Laceration with foreign body, right knee, initial encounter (principal); S76.111A Strain of right quadriceps muscle, fascia and tendon, initial encounter; W01.0XXA Fall on same level from slipping, tripping and stumbling without subsequent striking against object, initial encounter; F17.200 Nicotine dependence, unspecified, uncomplicated; Z82.49 Family history of ischemic heart disease and other diseases of the circulatory system; Z83.3 Family history of diabetes mellitus; Z98.84 Bariatric surgery status